=== PATIENT | female | born 1965 | race African-American/Black ===

== ENCOUNTER 2021-05-15 02:17 | Emergency (ER) | payer OTHER ==
[2021-05-15 03:19] LABS: BASO % 0.3 % (0-2.0); EOS % 3.3 % (0-4.5); HEMATOCRIT 40.1 % (32.4-45.2); HEMOGLOBIN 13.7 GM/dL (10.7-15.3); MCH 29.4 pg (25.7-33.7); MCHC 34.2 g/dl (32.0-36.0); MEAN CELL VOLUME 86.1 fl (80-96); MEAN PLT VOLUME 7.8 fl (7.5-11.1); NEUT % 53.4 % (42.8-82.8); PLATELET COUNT 270 10^3/uL (134-434); RBC 4.66 M/mm3 (3.60-5.2); RDW 14.4 % (11.6-15.6); WHITE BLOOD COUNT 7.1 K/mm3 (4.0-10.0)
[2021-05-15 03:29] LABS: INR 0.89 (0.83-1.09); PROTHROMBIN TIME (PATIENT) 10.8 SEC (9.7-13.0)
[2021-05-15 03:32] LABS: ACTIVATED PTT 32.1 SECONDS (25.2-36.5)
[2021-05-15 03:37] LABS: CHLORIDE 104 mmol/L (98-107); SODIUM 137 mmol/L (136-145)
[2021-05-15 03:39] LABS: CALCIUM 9.3 mg/dL (8.5-10.1)
[2021-05-15 03:40] LABS: ALBUMIN 3.8 g/dl (3.4-5.0); ANION GAP 6 MMOL/L (8-16); BLOOD UREA NITROGEN 18.5 mg/dL (7-18); CO2 27 mmol/L (21-32); GLUCOSE,RANDOM 90 mg/dL (74-106); MAGNESIUM 2.1 mg/dL (1.8-2.4)
[2021-05-15 03:43] LABS: CREATININE 0.9 mg/dL (0.55-1.3); SGOT/AST 33 U/L (15-37); SGPT/ALT 24 U/L (13-61)
[2021-05-15 03:46] LABS: ALK PHOS 88 U/L (45-117); BILIRUBIN,TOTAL 0.7 mg/dL (0.2-1); TOT PROT 8.3 g/dl (6.4-8.2)
[2021-05-15 04:18] VITALS: PULSE 59; TEMP 98.6; BMI 30.2
[2021-05-15 06:05] VITALS: BP 120/69
== END 2021-05-15 07:15 | disposition home or self-care (01) ==
LOC: JER 02:17
DX: R00.2 Palpitations (principal)
CPT/HCPCS: 36415; 71046-TC-FY; 80053; 82550; 82553; 83735; 84439; 84443; 84481; 84484; 85025; 85610; 85730; 93005; 93010; 99285-25

== ENCOUNTER 2023-10-17 00:14 | Emergency (ER) | payer OTHER ==
[2023-10-17 00:34] VITALS: BP 121/80; PULSE 68; RESP 18; TEMP 97.4; BMI 31.9
[2023-10-17] MEDS ORDERED: SODIUM CHLORIDE 0.9% 500 ML INFUS.BAG IV ONE (02:05)
[2023-10-17] MEDS ORDERED: ACETAMINOPHEN 1000 MG/100 ML BAG IVPB ONE (02:05)
[2023-10-17] MEDS ORDERED: DEXAMETHASONE SOD PHOSPHATE 10 MG/1 ML VIAL IVPUSH ONE (02:45)
[2023-10-17] MEDS ORDERED: ACETAMINOPHEN INJECTION 100 ML IVPB ONE (02:52)
[2023-10-17] MEDS ORDERED: DEXAMETHASONE SOD PHOSPHATE 10 MG/1 ML VIAL ONE (02:54)
[2023-10-17 03:08] LABS: BASO % 0.8 % (0-2.0); EOS % 3.3 % (0-4.5); HEMATOCRIT 39.4 % (32.4-45.2); HEMOGLOBIN 13.5 GM/dL (10.7-15.3); LYMPH % 35.3 % (8-40); MCHC 34.1 g/dl (32.0-36.0); MEAN PLT VOLUME 7.8 fl (7.5-11.1); MONO % 8.8 % (3.8-10.2); NEUT % 51.8 % (42.8-82.8); PLATELET COUNT 303 10^3/uL (134-434); RBC 4.64 M/mm3 (3.60-5.2); RDW 15.6 % (11.6-15.6); WHITE BLOOD COUNT 7.3 K/mm3 (4.0-10.0)
[2023-10-17 03:39] LABS: POTASSIUM 4.7 mmol/L (3.5-5.1)
[2023-10-17 03:41] LABS: CALCIUM 9.9 mg/dL (8.5-10.1)
[2023-10-17 03:42] LABS: ALBUMIN 3.8 g/dl (3.4-5.0); BLOOD UREA NITROGEN 14.6 mg/dL (7-18)
[2023-10-17 03:47] LABS: BILIRUBIN,TOTAL 0.7 mg/dL (0.2-1); TOT PROT 8.1 g/dl (6.4-8.2)
== END 2023-10-17 05:39 | disposition home or self-care (01) ==
LOC: JER 00:14
PROC: 3E033NZ Introduction of Analgesics, Hypnotics, Sedatives into Peripheral Vein, Percutaneous Approach (ICD-10-PCS; principal; 2023-10-17)
PROC: 3E033GC Introduction of Other Therapeutic Substance into Peripheral Vein, Percutaneous Approach (ICD-10-PCS; 2023-10-17)
DX: R07.0 Pain in throat (principal); R00.1 Bradycardia, unspecified; R42 Dizziness and giddiness; R55 Syncope and collapse; R07.9 Chest pain, unspecified; Z20.822 Contact with and (suspected) exposure to COVID-19
CPT/HCPCS: 0241U-QW; 36415; 71046-TC-FY; 80053; 84484; 85025; 93005; 93010; 99285-25; J0131; J1100